=== PATIENT | female | born 1995 | race Caucasian/White ===

== ENCOUNTER 2021-06-13 14:34 | Emergency (ER) | payer OTHER ==
[2021-06-13 15:37] LABS: HEMATOCRIT 42.6 % (37.0-47.0); RED BLOOD COUNT 4.66 M/mm3 (4.10-5.30); RED CELL DISTRIBUTION WIDTH 13.2 % (11.5-14.5); WHITE BLOOD COUNT 7.5 K/mm3 (4.8-10.8)
[2021-06-13 15:51] LABS: CALCIUM 9.6 mg/dL (8.3-10.5)
[2021-06-13] MEDS ORDERED: METOPROLOL SUCC25 M1 PO (17:20)
[2021-06-13] MEDS ORDERED: KLONOPIN 0.5MG0.5 MG PO (17:20)
[2021-06-13 17:29] VITALS: BP 140/89
== END 2021-06-13 17:29 | disposition home or self-care (01) ==
LOC: ED 14:34
PROVIDERS: Family Medicine
DX: O99.345 Other mental disorders complicating the puerperium (principal); F32.A Depression, unspecified; F41.9 Anxiety disorder, unspecified; Z86.16 Personal history of COVID-19

== ENCOUNTER 2021-06-17 17:05 | Emergency (ER) | payer OTHER ==
[~2021-06-17] VITALS: Ht 157.5 cm; Wt 67.3 kg
[~2021-06-17 17:05] MED LIST: KLONOPIN 0.5MG0.5 MG PO; METOPROLOL SUCC25 M1 PO
[2021-06-17 18:10] LABS: BASO # 0.05 K/mm3 (0.02-0.10); EOS % 1.3 % (1.0-5.0); HEMOGLOBIN 13.3 g/dL (12.5-16.0); MEAN CELL VOLUME 92 fl (78-100); MEAN CORPUSCULAR HEMOGLOBIN 30 pg (27-31); MEAN CORPUSCULAR HGB CONC 33 g/dL (33-37); MEAN PLATELET VOLUME 10.6 fl (7.4-10.4); MONO # 0.43 K/mm3 (0.20-0.80); NEU # 5.12 K/mm3 (1.40-6.50); PLATELET COUNT 340 K/mm3 (130-400); RED BLOOD COUNT 4.37 M/mm3 (4.10-5.30); WHITE BLOOD COUNT 7.9 K/mm3 (4.8-10.8)
[2021-06-17 18:23] LABS: ALBUMIN 4.2 g/dL (3.5-5.0); POTASSIUM 3.7 mmol/L (3.5-5.1)
[2021-06-17 18:24] LABS: CALCIUM 9.4 mg/dL (8.3-10.5)
[2021-06-17 18:25] LABS: TOTAL PROTEIN 7.2 g/dL (6.4-8.3)
[2021-06-17 18:27] LABS: TOTAL BILIRUBIN 0.5 mg/dL (0.2-1.2)
[2021-06-17 18:36] LABS: D-DIMER 0.26 mg/L FEU (0.15-0.50)
[2021-06-17 19:34] VITALS: BP 125/78
[2021-06-17 20:48] LABS: URINE APPEARANCE HAZY; URINE BILIRUBIN NEGATIVE (NEGATIVE); URINE BLOOD NEGATIVE (NEGATIVE); URINE COLOR LIGHT YELLOW; URINE GLUCOSE NEGATIVE (NEGATIVE); URINE KETONE NEGATIVE (NEGATIVE); URINE LEUKOCYTE ESTERASE NEGATIVE (NEGATIVE); URINE NITRATE NEGATIVE (NEGATIVE); URINE PROTEIN(semi-quant) TRACE (NEGATIVE); URINE UROBILINOGEN NORMAL (NORMAL)
== END 2021-06-17 19:43 | disposition home or self-care (01) ==
LOC: ED 17:05
PROVIDERS: Physician Assistant
DX: F41.9 Anxiety disorder, unspecified (principal); R07.9 Chest pain, unspecified; Z86.16 Personal history of COVID-19
CPT/HCPCS: J1885

== ENCOUNTER 2021-07-23 23:14 | Emergency (ER) | payer OTHER ==
[~2021-07-23] VITALS: Ht 172.7 cm; Wt 67.3 kg
[2021-07-23] MEDS ORDERED: SEPTRA DS 8001 TAB PO (23:47)
[2021-07-24 00:53] LABS: BASO # 0.05 K/mm3 (0.02-0.10); EOS # 0.16 K/mm3 (0.04-0.40); EOS % 2.4 % (1.0-5.0); HEMATOCRIT 40.6 % (37.0-47.0); HEMOGLOBIN 13.4 g/dL (12.5-16.0); LYMPH# 2.61 K/mm3 (1.50-4.00); MEAN CELL VOLUME 95 fl (78-100); MEAN CORPUSCULAR HEMOGLOBIN 31 pg (27-31); MEAN CORPUSCULAR HGB CONC 33 g/dL (33-37); MEAN PLATELET VOLUME 10.4 fl (7.4-10.4); MONO # 0.43 K/mm3 (0.20-0.80); NEU # 3.44 K/mm3 (1.40-6.50); PLATELET COUNT 279 K/mm3 (130-400); RED BLOOD COUNT 4.28 M/mm3 (4.10-5.30); RED CELL DISTRIBUTION WIDTH 13.1 % (11.5-14.5); WHITE BLOOD COUNT 6.7 K/mm3 (4.8-10.8)
[2021-07-24 00:54] LABS: URINE WBC 0 /hpf (0-3)
[2021-07-24 01:16] LABS: URINE APPEARANCE CLEAR; URINE BILIRUBIN NEGATIVE (NEGATIVE); URINE BLOOD NEGATIVE (NEGATIVE); URINE COLOR YELLOW; URINE GLUCOSE NEGATIVE (NEGATIVE); URINE KETONE NEGATIVE (NEGATIVE); URINE LEUKOCYTE ESTERASE NEGATIVE (NEGATIVE); URINE NITRATE NEGATIVE (NEGATIVE); URINE PROTEIN(semi-quant) NEGATIVE (NEGATIVE); URINE UROBILINOGEN NORMAL (NORMAL)
[2021-07-24 01:57] VITALS: BP 123/78
== END 2021-07-24 01:57 | disposition home or self-care (01) ==
LOC: ED 23:14
PROVIDERS: Family Medicine
DX: R10.31 Right lower quadrant pain (principal); F41.9 Anxiety disorder, unspecified
CPT/HCPCS: J1885